=== PATIENT | female | born 2000 | race Caucasian/White ===

== ENCOUNTER 2018-05-30 06:33 | Day surgery (SDC) | payer OTHER ==
[2018-05-26 12:40] VITALS: BP 134/86
[~2018-05-30] VITALS: Ht 162.6 cm; Wt 83.4 kg
[~2018-05-30 06:33] MED LIST: CHOL2000 PO; CYAN1TAB29 PO; MELA10TA PO; SERT50TA5 PO
[2018-05-30] MEDS ORDERED: LACTATED RINGERS 1,000 ML IV SCH (06:58)
[2018-05-30 07:16] LABS: HCG UR SG 1.029 (1.003-1.030)
[2018-05-30] MEDS ORDERED: BUPIVACAINE/PF-EPI 0.5% 1:200K ONE (07:30)
[2018-05-30] MEDS ORDERED: MUPIROCIN OINT 2%, 22GM ONE (07:30)
[2018-05-30] MEDS ORDERED: FENTANYL PF 250 MCG/5ML ONE (07:39)
[2018-05-30] MEDS ORDERED: MIDAZOLAM 1 MG/ML, 2ML ONE (07:39)
[2018-05-30] MEDS ORDERED: ROCURONIUM 10MG/ML,5ML ONE (07:40)
[2018-05-30] MEDS ORDERED: PROPOFOL 10 MG/ML, 20ML ONE (07:40)
[2018-05-30] MEDS ORDERED: SUCCINYLCHOLINE 20 MG/ML, 10ML ONE (07:40)
[2018-05-30] MEDS ORDERED: ACETAMINOPHEN 500 MG TABLET PO ONE (08:00)
[2018-05-30] MEDS ORDERED: SCOPOLAMINE PATCH, 1.5MG PATCH.TD72 TD ONE (08:00)
[2018-05-30] MEDS ORDERED: OXYMETAZOLINE NASAL SPRAY 0.05%, 15ML ONE (08:19)
[2018-05-30] MEDS ORDERED: BUPIVACAINE/PF-EPI 0.25% 1:200K INFIL ONE (08:21)
[2018-05-30] MEDS ORDERED: MORPHINE SULFATE 4 MG/ML, 1ML IVPush PRN (09:00)
[2018-05-30] MEDS ORDERED: LABETALOL 5MG/ML, 20ML IV PRN (09:00)
[2018-05-30] MEDS ORDERED: PROMETHAZINE 12.5 MG SUPP PR PRN (09:00)
[2018-05-30] MEDS ORDERED: ONDANSETRON 2MG/ML, 2ML IV PRN (09:00)
[2018-05-30] MEDS ORDERED: hydrALAzine 20 MG/ML, 1ML IV PRN (09:00)
[2018-05-30] MEDS ORDERED: OXYcodone 5 MG/5 ML ORAL.SOL UDC PO PRN (09:00)
[2018-05-30] MEDS ORDERED: MEPERIDINE/PF 25MG/0.5ML IVPush PRN (09:00)
[2018-05-30] MEDS ORDERED: MIDAZOLAM 1 MG/ML, 2ML IV PRN (09:00)
[2018-05-30] MEDS ORDERED: PROMETHAZINE 25 MG/ML, 1ML IV PRN (09:00)
[2018-05-30] MEDS ORDERED: LORazepam 2 MG/ML, 1ML IVPush PRN (09:00)
[2018-05-30] MEDS ORDERED: ALBUTEROL SULFATE 2.5 MG/3 ML NPPB PRN (09:00)
[2018-05-30] MEDS ORDERED: ONDANSETRON ODT 8 MG PO PRN (09:00)
[2018-05-30] MEDS ORDERED: OXYcodone 5 MG/5 ML ORAL.SOL UDC ONE ×2 (09:17→09:19)
[2018-05-30] MEDS ORDERED: FENTANYL PF 100 MCG/2ML ONE (09:19)
[2018-05-30] MEDS: FENTANYL PF 100 MCG/2ML IV PRN ×2 (09:23→09:28)
[2018-05-30] MEDS ORDERED: ONDANSETRON 2MG/ML, 2ML ONE (11:20)
[2018-05-30] MEDS ORDERED: DEXAMETHASONE 4 MG/ML, 1ML ONE (11:20)
[2018-05-30] MEDS ORDERED: CEFAZOLIN 1,000 MG ONE (11:20)
== END 2018-05-30 10:45 | disposition home or self-care (01) ==
LOC: OUT 06:33
PROVIDERS: ATTEND Specialist
DX: J35.01 Chronic tonsillitis (principal); Z98.890 Other specified postprocedural states; Z79.899 Other long term (current) drug therapy
CPT/HCPCS: 42826; 81025; 88300; J0330; J0690; J1100; J2250; J2405; J2704; J3010; J7120